=== PATIENT | male | born 1975 | race African-American/Black ===

== ENCOUNTER 2020-07-05 16:46 | Emergency (ER) | payer OTHER ==
[2020-07-05 17:44] VITALS: BP 154/78; PULSE 92; TEMP 98.6; BMI 30.1
== END 2020-07-05 18:45 | disposition short-term general hospital (02) ==
LOC: JER 16:46
DX: F19.10 Other psychoactive substance abuse, uncomplicated (principal)
CPT/HCPCS: 99283-25

== ENCOUNTER 2020-07-05 19:28 | Inpatient (IN) | payer OTHER ==
[2020-07-05 21:38] VITALS: BMI 23.6
[2020-07-06] MEDS ORDERED: ACETAMINOPHEN 325 MG TABLET (FP) PO PRN ×2 (00:51)
[2020-07-06] MEDS ORDERED: MAG HYDROX/AL HYDROX/SIMETH 30 ML UNIT-DOSE CUP PO PRN (00:51)
[2020-07-06] MEDS ORDERED: ONDANSETRON *ODT* 4 MG TABLET SL PRN (00:51)
[2020-07-06] MEDS ORDERED: chlordiazePOXIDE HCL 25 MG CAPSULE PO PRN (00:51)
[2020-07-06] MEDS ORDERED: BISMUTH SUBSALICYLATE 524 MG/30 ML UD PO PRN (00:51)
[2020-07-06] MEDS ORDERED: MAGNESIUM CITRATE 300 ML BOTTLE PO PRN (00:51)
[2020-07-06] MEDS ORDERED: MENTHOL/PHENOL 1 EACH UD MM PRN (00:51)
[2020-07-06] MEDS ORDERED: MAGNESIUM HYDROX 2400MG/30ML ORAL SUSPENSION 30 ML CUP PO PRN (00:51)
[2020-07-06] MEDS ORDERED: IBUPROFEN 400 MG TABLET (FP) PO PRN (00:51)
[2020-07-06] MEDS ORDERED: ALBUTEROL SO4 HFA INHALER IH PRN (00:53)
[2020-07-06] MEDS: METHOCARBAMOL 500 MG TABLET PO PRN (02:02)
[2020-07-06] MEDS: chlordiazePOXIDE HCL 25 MG CAPSULE PO SCH ×4 (06:10→22:29)
[2020-07-06] MEDS: PRENATAL VITAMINS W/ FOLIC ACID TABLET (FP) PO SCH (10:23)
[2020-07-06] MEDS ORDERED: MASKS NR ONE (12:41)
[2020-07-06] MEDS: MELATONIN 5 MG TABLETS PO SCH (22:29)
[2020-07-06] MEDS: THIAMINE HCL 100 MG TABLET (FP) PO SCH (22:29)
[2020-07-07] MEDS: chlordiazePOXIDE HCL 25 MG CAPSULE PO SCH ×4 (06:03→22:29)
[2020-07-07] MEDS: PRENATAL VITAMINS W/ FOLIC ACID TABLET (FP) PO SCH (10:59)
[2020-07-07 12:04] LABS: POTASSIUM 4.4 mmol/L (3.5-5.1)
[2020-07-07 12:11] LABS: HEMATOCRIT 32.5 % (35.4-49); HEMOGLOBIN 10.7 GM/dL (11.7-16.9); MCH 29.5 pg (25.7-33.7); MCHC 32.9 g/dl (32.0-35.9); MEAN CELL VOLUME 89.9 fl (80-96); MEAN PLT VOLUME 8.9 fl (7.5-11.1); PLATELET COUNT 364 K/MM3 (134-434); RBC 3.61 M/mm3 (4.00-5.60); RDW 14.4 % (11.9-15.9); WHITE BLOOD COUNT 6.4 K/mm3 (4.0-10.0)
[2020-07-07 12:13] LABS: ALBUMIN 3.3 g/dl (3.4-5.0); BLOOD UREA NITROGEN 14.4 mg/dL (7-18)
[2020-07-07 12:16] LABS: CREATININE 0.8 mg/dL (0.55-1.3)
[2020-07-07 12:17] LABS: BILIRUBIN,TOTAL 0.6 mg/dL (0.2-1); TOT PROT 6.6 g/dl (6.4-8.2)
[2020-07-07] MEDS ORDERED: LOPERAMIDE HCL 2 MG CAPSULE PO ONE (13:55)
[2020-07-07] MEDS ORDERED: DICYCLOMINE HCL 20 MG TABLET PO ONE (13:56)
[2020-07-07] MEDS: FAMOTIDINE 20 MG TABLET PO SCH ×2 (15:12→22:29)
[2020-07-07] MEDS: FERROUS SO4 325 MG TABLET (FP) PO SCH (15:13)
[2020-07-07] MEDS: THIAMINE HCL 100 MG TABLET (FP) PO SCH (22:29)
[2020-07-07] MEDS: MELATONIN 5 MG TABLETS PO SCH (22:31)
[2020-07-08] MEDS ORDERED: chlordiazePOXIDE HCL 10 MG CAPSULE PO PRN
[2020-07-08] MEDS: chlordiazePOXIDE HCL 10 MG CAPSULE PO SCH ×4 (05:58→22:42)
[2020-07-08] MEDS: FERROUS SO4 325 MG TABLET (FP) PO SCH (10:23)
[2020-07-08] MEDS: PRENATAL VITAMINS W/ FOLIC ACID TABLET (FP) PO SCH (10:24)
[2020-07-08] MEDS: FAMOTIDINE 20 MG TABLET PO SCH ×2 (10:27→22:41)
[2020-07-08] MEDS ORDERED: PNEUMOC 13-VAL CONJ-DIP CRM/PF 0.5 ML DISP.SYRIN IM ONE (12:00)
[2020-07-08] MEDS ORDERED: PNEUMOCOCCAL 23 VACCINE 0.5 ML VIAL IM ONE (12:00)
[2020-07-08] MEDS: MELATONIN 5 MG TABLETS PO SCH (22:40)
[2020-07-08] MEDS: THIAMINE HCL 100 MG TABLET (FP) PO SCH (22:41)
[2020-07-09] MEDS: chlordiazePOXIDE HCL 10 MG CAPSULE PO SCH ×2 (06:13→18:21)
[2020-07-09] MEDS: PRENATAL VITAMINS W/ FOLIC ACID TABLET (FP) PO SCH (10:03)
[2020-07-09] MEDS: FAMOTIDINE 20 MG TABLET PO SCH ×2 (10:03→22:12)
[2020-07-09] MEDS: FERROUS SO4 325 MG TABLET (FP) PO SCH (10:03)
[2020-07-09] MEDS: THIAMINE HCL 100 MG TABLET (FP) PO SCH (22:11)
[2020-07-09] MEDS: METHOCARBAMOL 500 MG TABLET PO PRN (22:11)
[2020-07-09] MEDS: MELATONIN 5 MG TABLETS PO SCH (22:12)
[2020-07-10] MEDS ORDERED: chlordiazePOXIDE HCL 10 MG CAPSULE PO ONE (05:00)
[2020-07-10] MEDS ORDERED: MASKS NR ONE (06:26)
[2020-07-10 09:17] VITALS: BP 124/78; PULSE 100; TEMP 97.8
== END 2020-07-10 09:38 | disposition home or self-care (01) | DRG 773 ==
LOC: YASAS 19:28 → Y6N 22:57
PROVIDERS: ADMIT Allergy & Immunology; ATTEND Allergy & Immunology
PROC: HZ2ZZZZ Detoxification Services for Substance Abuse Treatment (ICD-10-PCS; principal; 2020-07-05)
DX: F10.230 Alcohol dependence with withdrawal, uncomplicated (principal); F11.20 Opioid dependence, uncomplicated; F12.20 Cannabis dependence, uncomplicated; F41.9 Anxiety disorder, unspecified; F32.9 Major depressive disorder, single episode, unspecified; D64.9 Anemia, unspecified; J45.20 Mild intermittent asthma, uncomplicated; R76.11 Nonspecific reaction to tuberculin skin test without active tuberculosis; M25.562 Pain in left knee; Z99.89 Dependence on other enabling machines and devices; Z56.0 Unemployment, unspecified; Z59.0 Homelessness
CPT/HCPCS: 36415; 73560-TC-LT-FY; 80053; 85027; 86780; 93005; 93010; C9803; Q0162; U0003

== ENCOUNTER 2020-07-09 16:00 | Emergency (ER) | payer OTHER ==
[2020-07-09 16:21] VITALS: BP 110/77; PULSE 86; TEMP 98; BMI 23.6
== END 2020-07-09 19:56 | disposition home or self-care (01) ==
LOC: JER 16:00
DX: R76.11 Nonspecific reaction to tuberculin skin test without active tuberculosis (principal)
CPT/HCPCS: 71046-TC-FY; 99283-25